=== PATIENT | female | born 1955 | race Caucasian/White ===

== ENCOUNTER 2020-12-11 13:08 | Emergency (ER) | payer SELFPAY ==
[2020-12-11 13:18] VITALS: BMI 28.3
[2020-12-11] MEDS ORDERED: METOCLOPRAMIDE HCL INJECTION 10 MG/2 ML VIAL IVPB ONE (13:41)
[2020-12-11] MEDS ORDERED: ACETAMINOPHEN 1000 MG/100 ML VIAL (NON FORMULARY) IVPB ONE (13:41)
[2020-12-11] MEDS ORDERED: SODIUM CHLORIDE 1,000 ML IV STA (13:41)
[2020-12-11] MEDS ORDERED: ACETAMINOPHEN INJECTION 100 ML IVPB ONE (13:49)
[2020-12-11] MEDS ORDERED: METOCLOPRAMIDE HCL INJECTION 10 MG/2 ML VIAL ONE (13:49)
[2020-12-11 14:35] LABS: BASO % 0.9 % (0-2.0); EOS % 0.4 % (0-4.5); HEMATOCRIT 36.8 % (32.4-45.2); HEMOGLOBIN 12.3 GM/dL (10.7-15.3); LYMPH % 14.8 % (8-40); MCH 26.7 pg (25.7-33.7); MCHC 33.4 g/dl (32.0-36.0); MEAN CELL VOLUME 79.9 fl (80-96); MEAN PLT VOLUME 9.3 fl (7.5-11.1); MONO % 7.3 % (3.8-10.2); NEUT % 76.6 % (42.8-82.8); PLATELET COUNT 216 10^3/uL (134-434); RDW 13.8 % (11.6-15.6); WHITE BLOOD COUNT 7.1 K/mm3 (4.0-10.0)
[2020-12-11 14:41] LABS: INR 1.23 (0.83-1.09)
[2020-12-11 15:02] LABS: ALBUMIN 3.4 g/dl (3.4-5.0); BLOOD UREA NITROGEN 19.1 mg/dL (7-18); CALCIUM 8.4 mg/dL (8.5-10.1)
[2020-12-11 15:05] LABS: CREATININE 1.5 mg/dL (0.55-1.3)
[2020-12-11 15:06] LABS: BILIRUBIN,TOTAL 0.6 mg/dL (0.2-1)
[2020-12-11 15:07] LABS: TOT PROT 7.7 g/dl (6.4-8.2)
[2020-12-11 15:08] LABS: URINE APPEARANCE CLEAR; URINE BILIRUBIN NEGATIVE (NEGATIVE); URINE COLOR YELLOW; URINE GLUCOSE (UA) NEGATIVE (NEGATIVE); URINE KETONE NEGATIVE (NEGATIVE); URINE LEUK ESTERASE 1+ (NEGATIVE); URINE NITRITE NEGATIVE (NEGATIVE); URINE PROTEIN TRACE (NEGATIVE); URINE UROBILINOGEN 0.2 mg/dL (0.2-1.0)
[2020-12-11 16:21] LABS: EPI CELLS 12.5 /uL (0-25.1); HYALINE CASTS 1.39 /uL (0-3.1); URINE BACTERIA 728.7 /uL (0-1359); URINE RBC 4.7 /uL (0-23.9); URINE WBC 44.4 /uL (0-25.8)
[2020-12-11 16:36] VITALS: BP 127/70; PULSE 78; TEMP 98.5
== END 2020-12-11 16:45 | disposition home or self-care (01) ==
LOC: JER 13:08
PROC: 3E0333Z Introduction of Anti-inflammatory into Peripheral Vein, Percutaneous Approach (ICD-10-PCS; principal; 2020-12-11)
PROC: 3E033GC Introduction of Other Therapeutic Substance into Peripheral Vein, Percutaneous Approach (ICD-10-PCS; 2020-12-11)
PROC: 3E033GC Introduction of Other Therapeutic Substance into Peripheral Vein, Percutaneous Approach (ICD-10-PCS; 2020-12-11)
PROC: 3E0337Z Introduction of Electrolytic and Water Balance Substance into Peripheral Vein, Percutaneous Approach (ICD-10-PCS; 2020-12-11)
DX: R50.9 Fever, unspecified (principal); N30.00 Acute cystitis without hematuria
CPT/HCPCS: 36415; 80053; 81003; 85025; 85610; 87086; 87186; 99284-25; C9803; J0131; U0003; U0005

== ENCOUNTER 2021-05-26 13:04 | Emergency (ER) | payer OTHER ==
[2021-05-26 13:16] VITALS: TEMP 97.5; BMI 19.2
[2021-05-26] MEDS ORDERED: ACETAMINOPHEN 1000 MG/100 ML VIAL IVPB ONE (13:52)
[2021-05-26] MEDS ORDERED: ONDANSETRON 4 MG/2 ML VIAL IVPUSH ONE (13:53)
[2021-05-26] MEDS ORDERED: LACTATED RINGERS SOLUTION 1000 ML INFUS.BAG IV ONE (13:53)
[2021-05-26] MEDS ORDERED: FAMOTIDINE 20 MG/50 ML IVPB 20 MG/50 ML MG IVPB ONE ×2 (13:54→15:22)
[2021-05-26] MEDS ORDERED: MAG HYDROX/AL HYDROX/SIMETH 30 ML UNIT-DOSE CUP PO ONE (13:54)
[2021-05-26] MEDS ORDERED: ACETAMINOPHEN INJECTION 100 ML IVPB ONE (14:04)
[2021-05-26 14:33] LABS: HEMATOCRIT 40.1 % (32.4-45.2); MCH 26.6 pg (25.7-33.7); MCHC 32.5 g/dl (32.0-36.0); MEAN PLT VOLUME 9.4 fl (7.5-11.1); PLATELET COUNT 238 10^3/uL (134-434); RBC 4.89 M/mm3 (3.60-5.2); RDW 13.6 % (11.6-15.6)
[2021-05-26 14:42] LABS: INR 1.09 (0.83-1.09); PROTHROMBIN TIME (PATIENT) 12.8 SEC (9.7-13.0)
[2021-05-26 14:45] LABS: ACTIVATED PTT 26.6 SECONDS (25.2-36.5)
[2021-05-26 14:51] LABS: CHLORIDE 107 mmol/L (98-107); SODIUM 140 mmol/L (136-145)
[2021-05-26 14:53] LABS: CALCIUM 9.3 mg/dL (8.5-10.1)
[2021-05-26 14:54] LABS: ALBUMIN 3.7 g/dl (3.4-5.0); ANION GAP 8 MMOL/L (8-16); BLOOD UREA NITROGEN 19.2 mg/dL (7-18); CO2 26 mmol/L (21-32); GLUCOSE,RANDOM 157 mg/dL (74-106)
[2021-05-26 14:57] LABS: CREATININE 1.2 mg/dL (0.55-1.3); LIPASE 715 U/L (73-393); SGOT/AST 15 U/L (15-37); SGPT/ALT 17 U/L (13-61)
[2021-05-26 14:59] LABS: BILIRUBIN,TOTAL 0.5 mg/dL (0.2-1)
[2021-05-26 15:00] LABS: ALK PHOS 97 U/L (45-117)
[2021-05-26] MEDS ORDERED: MAG HYDROX/AL HYDROX/SIMETH 30 ML UNIT-DOSE CUP ONE (15:21)
[2021-05-26] MEDS ORDERED: ONDANSETRON 4 MG/2 ML VIAL ONE (15:21)
[2021-05-26 15:29] VITALS: PULSE 89
[2021-05-26 16:34] LABS: ANISOCYTOSIS 0; MACROCYTOSIS 0; PLATELET ESTIMATE NORMAL
[2021-05-26 18:10] VITALS: BP 153/83
== END 2021-05-26 18:17 | disposition home or self-care (01) ==
LOC: JER 13:04
PROC: 3E0333Z Introduction of Anti-inflammatory into Peripheral Vein, Percutaneous Approach (ICD-10-PCS; principal; 2021-05-26)
PROC: 3E03329 Introduction of Other Anti-infective into Peripheral Vein, Percutaneous Approach (ICD-10-PCS; 2021-05-26)
PROC: 3E033GC Introduction of Other Therapeutic Substance into Peripheral Vein, Percutaneous Approach (ICD-10-PCS; 2021-05-26)
DX: R10.13 Epigastric pain (principal); R11.10 Vomiting, unspecified; R19.7 Diarrhea, unspecified
CPT/HCPCS: 36415; 71046-TC-FY; 74177-TC; 76705-TC; 80053; 82550; 82962; 83690; 84484; 85025; 85610; 85730; 86850; 86900; 86901; 93005; 93010; 99285-25; C9803; J0131; Q9967; U0003; U0005